=== PATIENT | male | born 1950 | race Caucasian/White ===

== ENCOUNTER 2021-07-15 11:18 | Emergency (ER) | payer MEDICARE ==
[2021-07-15 13:41] VITALS: TEMP 99.2
[2021-07-15] MEDS ORDERED: SODIUM CHLORIDE 0.9% 50 ML IVPB ONE (16:30)
[2021-07-15] MEDS ORDERED: CASIRIVIMAB (REGN10933) (EUA) 600 MG, IMDEVIMAB (REGN10987) (EUA) 600 MG in SODIUM CHLO... IVPB ONE (17:00)
--- NOTE | 2021-07-15 17:17 | ED ---
General Adult HPI - General Chief complaint: Recheck/Abnormal Lab/Rx Stated complaint: abnormal EKG Time Seen by Provider: 07/15/21 15:51 Source: patient, RN notes reviewed, old records reviewed Mode of arrival: ambulatory Limitations: no limitations - History of Present Illness Initial comments: Patient is a 71-year-old male with past medical history remarkable for hypertension presents emergency department after being sent by his PCP for possible abnormal EKG. Patient is been having a mild nonproductive cough since last . He has not been vaccinated for COVID-19. He's been having subjective fevers and chills at home as well as generalized body aches. His no other acute complaints and denies chest pain, shortness of breath, abdominal pain, nausea, vomiting, diarrhea. Denies any known sick contacts. I evaluated the patient when he was placed in a room. Patient already has received the Covid swab which was positive. Patient presents because he was sent by his PCP. - Related Data Allergies Allergy/AdvReac Type Severity Reaction Status Date / Time No Known Allergies Allergy Verified 07/15/21 13:38 Review of Systems ROS Statement: Those systems with pertinent positive or pertinent negative responses have been documented in the HPI. Review of Systems: CONST: Denies fever EYES: Denies blurry vision ENT: Denies nasal congestion C/V: Denies Chest pain RESP: Denies shortness of breath GI: Denies abdominal pain : Denies dysuria SKIN: Denies rash. MSK: Denies joint pain. NEURO: Denies headache ROS Other: All systems not noted in ROS Statement are negative. Past Medical History Past Medical History: Hypertension History of Any Multi-Drug Resistant Organisms: None Reported Past Surgical History: Heart Catheterization With Stent Past Psychological History: No Psychological Hx Reported Smoking Status: Never smoker Past Alcohol Use History: None Reported Past Drug Use History: None Reported General Exam - General Exam Comments Initial Comments: General: Appears in no acute distress. HEAD: Normal with no signs of head trauma. EYES: PERRLA, EOMI, conjunctiva normal, no discharge. ENT: Hearing grossly intact, normal oropharynx. RESPIRATORY: Clear breath sounds bilaterally. No wheezes, rales, or rhonchi. C/V: Regular rate and rhythm. S1 and S2 auscultated, no edema, peripheral pulses 2+ and intact throughout ABD: Abd is soft, nontender, nondistended EXT: Normal range of motion, no obvious deformity SKIN: No rashes or lesions observed on exposed skin. NEURO: Alert and oriented 4. Limitations: no limitations Course Vital Signs 07/15/21 07/15/21 07/15/21 13:39 17:05 17:36 Temperature 99.2 F Pulse Rate 101 H 93 89 Respiratory 18 20 18 Rate Blood Pressure 123/86 141/94 139/90 O2 Sat by Pulse 98 99 98 Oximetry 07/15/21 07/15/21 07/15/21 18:00 18:30 19:00 Temperature Pulse Rate 82 82 82 Respiratory 18 18 18 Rate Blood Pressure 138/90 137/93 140/86 O2 Sat by Pulse 99 99 99 Oximetry Medical Decision Making - Medical Decision Making Based on the patient's presentation and physical exam, he was advised PCP for evaluation following atypical EKG findings, however EKG at our system is negative for any acute ischemic changes. It is unremarkable. I was able to compare to the EKG brought from the outside office and it is unchanged. There are no signs of ischemia or any concerning symptoms. Patient is asymptomatic otherwise. He was found to be positive for COVID-19. He does meet criteria for monoclonal antibody administration. He consented to receive the antibody administration. He will be observed here in the department for any signs of ALLERGIC reaction. I do not believe that he requires any further laboratory studies or imaging at this time. He was in agreement this plan. Patient had no ALLERGIC reaction. He is ready for discharge home. I instructed the patient to follow up with their PCP in the next 3 days. I explained that the patient should return to the emergency department if they experience any worsening symptoms. Strict return precautions were discussed with the patient. The patient expressed understanding of these instructions. I answered all questions that the patient had. The patient was discharged home in good condition with their prescriptions and follow up information. - Lab Data Lab Results 07/15/21 Range/Units 13:42 Coronavirus (PCR) Detected A (Not Detectd) - EKG Data -: EKG Interpreted by Me EKG Comments: 12-lead Electrocardiogram Interpretation Note EKG was reviewed and interpreted by myself. 12-lead ECG performed at 1543 is interpreted by me as revealing normal sinus rhythm at a rate of 83 beats per minute. [place] is normal. OR interval is 152 ms, QRS duration is 82 ms, QTc is 392 ms.. There were no ST or T wave abnormalities to suggest myocardial ischemia or injury. R wave progression across the precordium was satisfactory. By my interpretation this EKG is non-diagnostic for acute ischemia. Disposition Clinical Impression: COVID-19 Disposition: HOME SELF-CARE Condition: Good Instructions (If sedation given, give patient instructions): Coronavirus Disease 2019 (COVID-19) Is patient prescribed a controlled substance at d/c from ED?: No Referrals: Adriana Olivarez MD [Primary Care Provider] - 1-2 days
[2021-07-15 17:36] VITALS: RESP 18
[2021-07-15 18:26] VITALS: PULSE 82
[2021-07-15 19:12] VITALS: BP 140/86
== END 2021-07-15 19:16 | disposition home or self-care (01) ==
LOC: EC 11:18
DX: U07.1 COVID-19 (principal); I10 Essential (primary) hypertension
CPT/HCPCS: 96365 ×2; 96361 ×2; 99284 ×2; 93005; 87635; M0243; Q0243